=== PATIENT | male | born 1960 | race Two or more races ===

== ENCOUNTER 2019-08-16 21:21 | Emergency (ER) | payer OTHER ==
[~2019-08-16] VITALS: Ht 172.7 cm; Wt 108.5 kg
[2019-08-16 21:24] VITALS: BP 129/75
[2019-08-16] MEDS ORDERED: KETOROLAC 30 MG/1 ML ONE (23:13)
--- NOTE | 2019-08-16 23:15 | NUR ---
seen by GREG. medicated for pain.
[2019-08-16] MEDS ORDERED: KETOROLAC 30 MG/1 ML IM ONE (23:30)
== END 2019-08-16 23:49 | disposition home or self-care (01) ==
LOC: ED 22:45
DX: G89.11 Acute pain due to trauma (principal); M48.36 Traumatic spondylopathy, lumbar region; M54.5 Low back pain; W18.39XA Other fall on same level, initial encounter; Y93.89 Activity, other specified; Y92.488 Other paved roadways as the place of occurrence of the external cause; Y99.8 Other external cause status
CPT/HCPCS: 72110; 96372; 99283; J1885

== ENCOUNTER → 2019-12-15 | Outpatient (CLI) | payer OTHER ==
[2019-12-15 07:14] LABS: BASOPHILS # (AUTO) 0.04 x10^3/uL (0-0.1); BASOPHILS % (AUTO) 1 % (0-1); EOSINOPHILS # (AUTO) 0.45 x10^3/uL (0-0.4); EOSINOPHILS % (AUTO) 6 % (1-7); LYMPHOCYTES % (AUTO) 38 % (22-44); MD NO; MEAN CORPUSCULAR HEMOGLOBIN 28.6 pg (27.5-34.5); MEAN CORPUSCULAR VOLUME 86.5 fL (81-97); MEAN PLATELET VOLUME 8.7 fL (7.4-10.4); MONOCYTES # (AUTO) 0.47 x10^3/uL (0.2-0.8); MONOCYTES % (AUTO) 6 % (2-9); NEUTROPHILS # (AUTO) 4.04 x10^3/uL (1.8-6.8); NEUTROPHILS % (AUTO) 51 % (42-75); PLATELET COUNT 243 x10^3/uL (130-400); RED BLOOD COUNT 5.31 x10^6/uL (4.38-5.82); RED CELL DISTRIBUTION WIDTH 13.2 % (9.4-14.8)
[2019-12-15 07:26] LABS: ALANINE AMINOTRANSFERASE 46 U/L (12-78); ANION GAP 5 mmol/L (5-15); CALCIUM 8.7 mg/dL (8.5-10.1); CHLORIDE 109 mmol/L (98-107); CHOLESTEROL, TOTAL 189 mg/dL (140-239); CREATININE 0.74 mg/dL (0.7-1.3)
[2019-12-15 07:37] LABS: ALBUMIN 3.7 g/dL (3.4-5.0); ALKALINE PHOSPHATASE 63 U/L (45-117); BILIRUBIN,TOTAL 0.6 mg/dL (0.2-1.0); CHOL/HDL RATIO 5.3; HDL CHOL % 19 % (26-37); HDL CHOLESTEROL (DIRECT) 36 mg/dL (40-60); LDL CHOLESTEROL,CALCULATED 95 mg/dL (54-169); LDL/HDL RATIO 2.6 (0.5-3.0); PSA SCREEN 1.33 ng/mL (0.00-4.00); TOTAL PROTEIN 7.3 g/dL (6.4-8.2); TRIGLYCERIDES 290 mg/dL (50-200); VLDL CHOLESTEROL 58 mg/dL (0-25)
== END | disposition home or self-care (01) ==
LOC: LAB 07:02
PROVIDERS: ATTEND Nurse Practitioner Family
DX: Z00.01 Encounter for general adult medical examination with abnormal findings (principal); Z12.5 Encounter for screening for malignant neoplasm of prostate; Z12.11 Encounter for screening for malignant neoplasm of colon; Z13.220 Encounter for screening for lipoid disorders; R35.0 Frequency of micturition; R03.0 Elevated blood-pressure reading, without diagnosis of hypertension; E66.09 Other obesity due to excess calories; H90.5 Unspecified sensorineural hearing loss; M19.90 Unspecified osteoarthritis, unspecified site; M25.512 Pain in left shoulder
CPT/HCPCS: 36415; 80053; 80061; 83036; 84443; 85025; G0103